=== PATIENT | female | born 1985 | race Caucasian/White ===

== ENCOUNTER 2018-04-14 05:06 | Inpatient (IN) | payer BC ==
[2018-04-14] MEDS ORDERED: Sodium Chloride 0.9% 10 ML Syringe FLUSH PRN (05:11)
[2018-04-14] MEDS ORDERED: ceFAZolin 2 GM in Premix Bag 1 BAG IV ONE (05:11)
[2018-04-14] MEDS ORDERED: Sodium Chloride 0.9% 2.5 ML Syringe FLUSH PRN (05:11)
[2018-04-14] MEDS ORDERED: Citric Acid/Sodium Citrate Solution 30 ML Cup PO ONE (05:11)
[2018-04-14] MEDS ORDERED: Oxytocin/0.9 % Sodium Chloride 30 UNIT/500 ML BAG IV SCH (05:15)
[2018-04-14] MEDS: Lactated Ringers 1,000 ML IV SCH ×2 (05:35→06:39)
--- NOTE | 2018-04-14 07:05 | PCM.PREANE ---
Preanesthetic Assessment - Anesthesia/Transfusion/Family Hx Anesthesia History: Prior Anesthesia Without Reaction Family History of Anesthesia Reaction: No Transfusion History: No Prior Transfusion(s) Intubation History: Unknown - Review of Systems General: No Symptoms Pulmonary: No Symptoms Cardiovascular: No Symptoms Gastrointestinal: No Symptoms Neurological: No Symptoms Other: Reports: None - Physical Assessment Height: 1.55 m Weight: 85.729 kg ASA Class: 2 Mental Status: Alert & Oriented x3 Airway Class: Mallampati = 2 Dentition: Reports: Normal Dentition Thyro-Mental Finger Breadths: 3 Mouth Opening Finger Breadths: 2 ROM/Head Extension: Full Lungs: Clear to Auscultation, Normal Respiratory Effort Cardiovascular: Regular Rate, Regular Rhythm - Lab Values: Laboratory Last Values WBC 9.62 K/uL (4.0-11.0) 04/14/18 05:35 RBC 4.68 M/uL (4.30-5.90) 04/14/18 05:35 Hgb 12.8 g/dL (12.0-16.0) 04/14/18 05:35 Hct 38.4 % (36.0-46.0) 04/14/18 05:35 MCV 82.1 fL (80.0-98.0) 04/14/18 05:35 MCH 27.4 pg (27.0-32.0) 04/14/18 05:35 MCHC 33.3 g/dL (31.0-37.0) 04/14/18 05:35 RDW Std Deviation 42.4 fl (28.0-62.0) 04/14/18 05:35 RDW Coeff of Miranda 14 % (11.0-15.0) 04/14/18 05:35 Plt Count 210 K/uL (150-400) 04/14/18 05:35 MPV 10.70 fL (7.40-12.00) 04/14/18 05:35 Nucleated RBC % 0.0 /100WBC 04/14/18 05:35 Nucleated RBCs # 0 K/uL 04/14/18 05:35 Blood Type B POSITIVE 04/14/18 05:35 Antibody Screen NEGATIVE 04/14/18 05:35 - Allergies Allergies/Adverse Reactions: Allergies Allergy/AdvReac Type Severity Reaction Status Date / Time No Known Allergies Allergy Verified 04/09/18 09:00 - Blood Blood Available: No - Anesthesia Plan Pre-Op Medication Ordered: None - Acknowledgements Anesthesia Type Planned: Spinal Pt an Appropriate Candidate for the Planned Anesthesia: Yes Alternatives and Risks of Anesthesia Discussed w Pt/Guardian: Yes Pt/Guardian Understands and Agrees with Anesthesia Plan: Yes PreAnesthesia Questionnaire HEENT History: Reports: Other (See Below) Other HEENT History: wears glasses Respiratory History: Reports: Asthma Gastrointestinal History: Reports: Other (See Below) Other Gastrointestinal History: occasional heartburn with Genitourinary History: Reports: None 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: Neurological History: Reports: Migraines Endocrine/Metabolic History: Reports: Diabetes, Gestational Other Endocrine/Metabolic History: gestational diabetes with 1st - Past Surgical History Head Surgeries/Procedures: Reports: None HEENT Surgical History: Reports: Oral Surgery Respiratory Surgical History: Reports: None GI Surgical History: Reports: None Female Surgical History: Reports: Section Endocrine Surgical History: Reports: None Neurological Surgical History: Reports: None - SUBSTANCE USE Smoking Status *Q: Never Smoker Second Hand Smoke Exposure: Yes Recreational Drug Use History: No - HOME MEDS Home Medications: Home Meds Albuterol [Ventolin HFA] 1 - 2 puff INH ASDIRECTED PRN 04/09/18 [History] Fish Oil/[place]-3 Fatty Acids [Fish Oil 1,000 MG] 1 tab PO DAILY 04/09/18 [ History] PNV95/Ferrous Fumarate/FA [ Vitamin Tablet] 1 tab PO DAILY 04/09/18 [ History] - CURRENT (IN HOUSE) MEDS Current Meds: Current Medications Lactated Ringer's (Ringers, Lactated) 1,000 mls @ 500 mls/hr IV BOLUS CARMELO Last Admin: 04/14/18 06:39 Dose: 500 mls/hr Oxytocin/Sodium Chloride (Oxytocin 30 Unit/500 Ml-Ns) 30 unit in 500 mls @ 250 mls/hr IV TITRATE CARMELO Sodium Chloride (Saline Flush) 10 ml FLUSH ASDIRECTED PRN PRN Reason: Keep Vein Open Sodium Chloride (Saline Flush) 2.5 ml FLUSH ASDIRECTED PRN PRN Reason: Keep Vein Open Discontinued Medications Citric Acid/Sodium Citrate (Bicitra Solution) 30 ml PO ONETIME ONE Stop: 04/14/18 05:12 Cefazolin Sodium/Dextrose 2 gm (/ Premix) 50 mls @ 100 mls/hr IV ONETIME ONE Stop: 04/14/18 05:40
[2018-04-14] MEDS ORDERED: Oxytocin 10 Units/1 ML SDV ONE ×2 (07:10)
[2018-04-14] MEDS ORDERED: ceFAZolin/Dextrose,Iso-Osmotic 2 GM/50 ML Duplex Bag IV ONE (07:10)
[2018-04-14] MEDS ORDERED: Morphine PF 1 MG/ML Amp ONE (07:13)
[2018-04-14] MEDS ORDERED: ePHEDrine 50 MG/ML SDV ONE (07:23)
[2018-04-14] MEDS ORDERED: Phenylephrine/Normal Saline 100 MCG/ML 10 ML Syringe ONE (08:48)
[2018-04-14] MEDS ORDERED: Esmolol 100 MG/10 ML SDV ONE (08:48)
[2018-04-14] MEDS ORDERED: Bisacodyl 10 MG Supp RECTAL PRN (09:28)
[2018-04-14] MEDS ORDERED: Lanolin 100% Cream 7 GM Tube TOP PRN (09:28)
[2018-04-14] MEDS ORDERED: Ondansetron 4 MG/2 ML SDV IV PRN (09:28)
[2018-04-14] MEDS ORDERED: Acetaminophen/oxyCODONE 325-5 MG Tab PO PRN (09:28)
[2018-04-14] MEDS ORDERED: diphenhydrAMINE 50 MG/ML SDV IVPUSH PRN (09:28)
[2018-04-14] MEDS ORDERED: Ibuprofen 800 MG Tab PO PRN (09:28)
[2018-04-14] MEDS ORDERED: Lactated Ringers 1,000 ML IV SCH (09:30)
--- NOTE | 2018-04-14 09:40 | PCM.OPNOTE ---
- General Post-Op/Procedure Note Date of Surgery/Procedure: 04/14/18 Operative Procedure(s): Repeat section Findings: Female , Weight 2800grams, Apgars 5 and 8. Normal appearing uterus, tubes and ovaries. Grossly normal placenta with 3 vessel cord Pre Op Diagnosis: IUP at 39 weeks, Polyhydramnios, Previous c- section, declined Post-Op Diagnosis: Same Anesthesia Technique: Spinal Primary Surgeon: Preeti Scott Linter Tender: Felicia Brown Fluid Replacement, Intraop: 1,200 Output, Urine Amount: 400 EBL in mLs: 800 Complications: None Condition: Good
[2018-04-14] MEDS: Ketorolac 30 MG/ML SDV IVPUSH SCH ×3 (09:43→21:17)
--- NOTE | 2018-04-14 10:01 | PCM.POSTAN ---
POST ANESTHESIA ASSESSMENT - MENTAL STATUS Mental Status: Alert, Oriented - RESPIRATORY Respiratory Status: Respiratory Rate WNL, Airway Patent, O2 Saturation Stable - CARDIOVASCULAR CV Status: Pulse Rate WNL, Blood Pressure Stable - GASTROINTESTINAL GI Status: No Symptoms - PAIN Pain Score: 0 - POST OP HYDRATION Hydration Status: Adequate & Stable
[2018-04-14] MEDS ORDERED: Nalbuphine 10 MG/1 ML Vial IVPUSH PRN (10:28)
[2018-04-14] MEDS ORDERED: Naloxone 0.4 MG/ML Syringe IVPUSH PRN (10:28)
[2018-04-14] MEDS: Docusate Sodium 100 MG Cap PO SCH (21:17)
[2018-04-15] MEDS: Ketorolac 30 MG/ML SDV IVPUSH SCH ×2 (03:39→10:22)
--- NOTE | 2018-04-15 07:13 | OR ---
SURGEON: Preeti Scott MD DATE OF PROCEDURE: 04/14/2018 PREOPERATIVE DIAGNOSES: 1. Intrauterine at 39 weeks gestation. 2. Polyhydramnios. 3. Elective repeat section, declined trial of labor after , TOLAC. POSTOPERATIVE DIAGNOSES: 1. Intrauterine at 39 weeks gestation. 2. Polyhydramnios. 3. Elective repeat section, declined trial of labor after , TOLAC. 4. Delivered. PROCEDURE: Repeat low transverse section via Pfannenstiel. ANESTHESIA: Spinal. IV FLUIDS: 1200 mL of crystalloids. ESTIMATED BLOOD LOSS: 800 mL. URINE OUT: 400 mL, clear. COMPLICATIONS: None. DISPOSITION: Stable to recovery room. FINDINGS: Female infant, weight 2800 g, scores 5 and 9 at 1 and 5 minutes respectively. Copious amount of clear amniotic fluid. Grossly normal placenta with 3-vessel cord. Normal uterus, tubes, and ovaries bilaterally. INDICATION: The patient is a 32-year-old, G3, P1-0-1-1, with a history prior section, she declined trial of labor after section, opting to have a repeat section. Her was complicated by polyhydramnios with reassuring surveillance. GBS negative DESCRIPTION OF PROCEDURE: The patient was taken to the operating room, where spinal anesthesia was performed and found to be adequate. She was prepped and draped in a sterile fashion in dorsal supine position with a leftward tilt. A 2 g of Ancef was given. Appropriate time-out was held. SCDs were in place with the Villeda draining down to gravity. A Pfannenstiel skin incision was then made with a scalpel along the old incision and carried through to the underlying fascia with the Bovie. The fascia was incised in the midline and extended laterally with the Chaparro scissors. The superior aspect of the fascial incision was grasped with Asha clamps, elevated, and the underlying rectus muscles were dissected off with the scalpel. Inferior aspect of the fascial incision was then in similar fashion grasped with Asha clamps, elevated, and the underlying rectus muscles were dissected off sharply with the scalpel. The rectus muscles were then in the midline carefully until the parietal peritoneum was reached and entered bluntly. The peritoneal defect was then extended superiorly and inferiorly with good visualization of the bladder and other internal organs. An Jarred self-retaining retractor was then placed into the abdominal cavity. The vesicouterine peritoneum was identified, picked up and sharply with Metzenbaum scissors and extended laterally and a bladder flap was created digitally. The lower uterine segment was then incised in a transverse position and the uterine incision was extended upwards and downwards bluntly. Copious amount of clear amniotic fluid was noted and the 's head was noted to be floating. The 's head was then gently grasped and but I was unable to deliver the head with fundal pressure applied by my certified surgical first assistant. Due to the fact that the head was floating, I decided to use a Kiwi vacuum to aid delivery of the infant's head. This was applied and then traction was applied. It was then noted that the infant was protruding the left hand through the uterine incision. I dislodged the Kiwi and then gently pushed back the infant's hand into the uterine cavity by making sure that it was bent by the elbow, and then the hand was gently swept back into the uterine cavity. The Kiwi was then reapplied and with good traction and fundal pressure from my certified surgical first assistant, the head was then delivered successfully. The shoulders and the rest of the baby was then delivered atraumatically. The cord was then double clamped and cut and the oropharynx and nostrils were bulb suctioned on the abdomen. The baby was then handed over to the waiting nursery team. I was only able to collect the venous sample and cord blood sample were obtained. The placenta was delivered spontaneously with uterine massage. The uterine cavity was cleaned of all clots and debris. The hysterotomy site was then repaired in 2 layers using 0 Vicryl. The first layer was repaired in a running locked fashion and second imbricating layer was performed to obtain excellent hemostasis. Good hemostasis was noted. The ovaries and tubes were examined and found to be grossly normal bilaterally. The gutters were cleaned of all clots and debris. The hysterotomy site was re- examined and found to have excellent hemostasis. The Jarred O retractor was then removed from the abdominal cavity. Parietal peritoneum was then identified and closed using 2-0 Vicryl in a running fashion. The rectus muscle was reapproximated using 2-0 Vicryl. The subfascial tissue was found to have excellent hemostasis. The fascia was then closed with 0 Vicryl using running stitches. The subcuticular layer was made hemostatic with the Bovie. The skin was closed with 4-0 Monocryl suture placing subcuticular stitches. The patient tolerated the procedure well. Sponge, instrument, and needle counts were correct at the end of the procedure. WANDA / CESARIO /[id number] MTDD
--- NOTE | 2018-04-15 08:20 | PCM.PNPP ---
<Felicia Brown - Last Filed: 04/15/18 08:54> - General Info Date of Service: 04/15/18 Admission Dx/Problem (Free Text): Repeat LTCS Subjective Update: 32 year old POD1 from repeat LTCS at 39 weeks. Patient offers no complaints. Functional Status: Reports: Pain Controlled, Tolerating Diet, Ambulating, Urinating - Review of Systems General: Denies: Fever, Chills HEENT: Denies: Headaches, Visual Changes Pulmonary: Denies: Shortness of Breath, Pleuritic Chest Pain, Cough Cardiovascular: Denies: Chest Pain, Edema Gastrointestinal: Denies: Abdominal Pain, Constipation, Diarrhea, Nausea, Vomiting Genitourinary: Denies: Dysuria, Frequency, Burning Musculoskeletal: Denies: Leg Pain Neurological: Denies: Dizziness, Headache - General Info Date of Service: 04/15/18 - Patient Data Vital Signs - Most Recent: Last Vital Signs Temp 36.6 C 04/15/18 03:50 Pulse 100 04/15/18 07:00 Resp 16 04/15/18 07:00 BP 129/64 04/15/18 03:50 Pulse Ox 96 04/15/18 07:00 Weight - Most Recent: 189 lb I&O - Last 24 Hours: Intake & Output 04/14/18 04/15/18 04/15/18 22:59 06:59 14:59 Output Total 1100 700 Balance -1100 -700 Lab Results - Last 24 Hours: Laboratory Results - last 24 hr 04/14/18 04/15/18 Range/Units 08:39 04:55 Hgb 8.7 L (12.0-16.0) g/dL Hct 26.3 L (36.0-46.0) % Cord VBG pH 7.098 L (7.25-7.45) Cord VBG Base Excess -15 L (-10--2) Med Orders - Current: Current Medications Bisacodyl (Dulcolax) 10 mg RECTAL ONETIME PRN PRN Reason: Constipation Diphenhydramine HCl (Benadryl) 25 mg IVPUSH Q6H PRN PRN Reason: Itching or Nausea Docusate Sodium (Colace) 100 mg PO BID CARMELO Last Admin: 04/14/18 21:17 Dose: 100 mg Emollient Ointment (Lansinoh Hpa) 0 gm TOP ASDIRECTED PRN PRN Reason: Sore Nipples Lactated Ringer's (Ringers, Lactated) 1,000 mls @ 125 mls/hr IV ASDIRECTED CARMELO Ibuprofen (Motrin) 800 mg PO Q8H PRN PRN Reason: mild pain or fever Ketorolac Tromethamine (Toradol) 30 mg IVPUSH Q6H CARMELO Stop: 04/15/18 09:31 Last Admin: 04/15/18 03:39 Dose: 30 mg Nalbuphine HCl (Nubain) 5 mg IVPUSH Q3H PRN PRN Reason: Pruritis Stop: 04/15/18 10:29 Naloxone HCl (Narcan) 0.1 mg IVPUSH ONETIME PRN PRN Reason: Respiratory Depression Stop: 04/15/18 10:28 Ondansetron HCl (Zofran) 4 mg IV Q4H PRN PRN Reason: Nausea/Vomiting Oxycodone/Acetaminophen (Percocet 325-5 Mg) 1 tab PO Q4H PRN PRN Reason: Pain (moderate 4-6) Oxycodone/Acetaminophen (Percocet 325-5 Mg) 2 tab PO Q4H PRN PRN Reason: Pain (moderate 4-6) Discontinued Medications Cefazolin Sodium/Dextrose (Ancef) Confirm Administered Dose 2 gm IV .STK-MED ONE Stop: 04/14/18 07:11 Citric Acid/Sodium Citrate (Bicitra Solution) 30 ml PO ONETIME ONE Stop: 04/14/18 05:12 Ephedrine Sulfate (Ephedrine Sulfate) Confirm Administered Dose 50 mg .ROUTE .STK-MED ONE Stop: 04/14/18 07:24 Esmolol HCl (Esmolol) Confirm Administered Dose 100 mg .ROUTE .STK-MED ONE Stop: 04/14/18 08:49 Cefazolin Sodium/Dextrose 2 gm (/ Premix) 50 mls @ 100 mls/hr IV ONETIME ONE Stop: 04/14/18 05:40 Lactated Ringer's (Ringers, Lactated) 1,000 mls @ 500 mls/hr IV BOLUS [facility] Last Admin: 04/14/18 06:39 Dose: 500 mls/hr Oxytocin/Sodium Chloride (Oxytocin 30 Unit/500 Ml-Ns) 30 unit in 500 mls @ 250 mls/hr IV TITRATE CARMELO Morphine Sulfate (Duramorph Pf) Confirm Administered Dose 1 mg .ROUTE .STK-MED ONE Stop: 04/14/18 07:14 Oxytocin (Pitocin) Confirm Administered Dose 10 unit .ROUTE .STK-MED ONE Stop: 04/14/18 07:11 Oxytocin (Pitocin) Confirm Administered Dose 10 unit .ROUTE .STK-MED ONE Stop: 04/14/18 07:11 Phenylephrine HCl (Phenylephrine In Ns 100 Mcg/Ml) Confirm Administered Dose 1 mg .ROUTE .STK-MED ONE Stop: 04/14/18 08:49 Sodium Chloride (Saline Flush) 10 ml FLUSH ASDIRECTED PRN PRN Reason: Keep Vein Open Sodium Chloride (Saline Flush) 2.5 ml FLUSH ASDIRECTED PRN PRN Reason: Keep Vein Open - Interaction Disposition, : [place] to Nursery Infant Interaction: Not Applicable Infant Feeding: Bottle Fed Support Person: - Recovery Exam Fundal Tone: Firm Fundal Level: 1 Fingerbreadths Below Umbilicus Fundal Placement: Midline Lochia Amount: Scant Lochia Color: Rubra/Red Perineum Description: Intact, Minimal Bruising/Swelling Episiotomy/Laceration: None Bladder Status: Nonpalpable Urinary Elimination: Voided - Exam General: Alert, Oriented, No Acute Distress HEENT: Pupils Equal, Pupils Reactive Lungs: Clear to Auscultation, Normal Respiratory Effort. No: Crackles Cardiovascular: Regular Rate, Regular Rhythm, No Murmurs GI/Abdominal Exam: Normal Bowel Sounds, Soft, Non-Tender, No Distention. No: Guarding, Rigid, Rebound Extremities: Normal Inspection, Normal Range of Motion, Non-Tender, No Pedal Edema, Normal Capillary Refill Skin: Warm, Dry, Intact Wound/Incisions: Healing Well, Dressing Dry and Intact Neurological: No New Focal Deficit - Problem List Review Problem List Initiated/Reviewed/Updated: Yes - Assessment Assessment:: 32 year old POD1 from repeat LTCS. Pain controlled. Ambulating and voiding. - Plan Plan:: Continue routine postop cares. Pain meds: percocet and ibuprofen Continue to monitor I/O Up ad lili Anticipate discharge tomorrow. <Preeti Scott - Last Filed: 04/15/18 08:59> - Patient Data Vital Signs - Most Recent: Last Vital Signs Temp 36.5 C 04/15/18 08:00 Pulse 89 04/15/18 08:00 Resp 18 04/15/18 08:00 BP 122/64 04/15/18 08:00 Pulse Ox 99 04/15/18 08:00 I&O - Last 24 Hours: Intake & Output 04/14/18 04/15/18 04/15/18 22:59 06:59 14:59 Output Total 1100 700 Balance -1100 -700 Lab Results - Last 24 Hours: Laboratory Results - last 24 hr 04/14/18 04/15/18 Range/Units 08:39 04:55 Hgb 8.7 L (12.0-16.0) g/dL Hct 26.3 L (36.0-46.0) % Cord VBG pH 7.098 L (7.25-7.45) Cord VBG Base Excess -15 L (-10--2) Med Orders - Current: Current Medications Bisacodyl (Dulcolax) 10 mg RECTAL ONETIME PRN PRN Reason: Constipation Diphenhydramine HCl (Benadryl) 25 mg IVPUSH Q6H PRN PRN Reason: Itching or Nausea Docusate Sodium (Colace) 100 mg PO BID [facility] Last Admin: 04/14/18 21:17 Dose: 100 mg Emollient Ointment (Lansinoh Hpa) 0 gm TOP ASDIRECTED PRN PRN Reason: Sore Nipples Lactated Ringer's (Ringers, Lactated) 1,000 mls @ 125 mls/hr IV ASDIRECTED [facility] Ibuprofen (Motrin) 800 mg PO Q8H PRN PRN Reason: mild pain or fever Ketorolac Tromethamine (Toradol) 30 mg IVPUSH Q6H [facility] Stop: 04/15/18 09:31 Last Admin: 04/15/18 03:39 Dose: 30 mg Nalbuphine HCl (Nubain) 5 mg IVPUSH Q3H PRN PRN Reason: Pruritis Stop: 04/15/18 10:29 Naloxone HCl (Narcan) 0.1 mg IVPUSH ONETIME PRN PRN Reason: Respiratory Depression Stop: 04/15/18 10:28 Ondansetron HCl (Zofran) 4 mg IV Q4H PRN PRN Reason: Nausea/Vomiting Oxycodone/Acetaminophen (Percocet 325-5 Mg) 1 tab PO Q4H PRN PRN Reason: Pain (moderate 4-6) Oxycodone/Acetaminophen (Percocet 325-5 Mg) 2 tab PO Q4H PRN PRN Reason: Pain (moderate 4-6) Discontinued Medications Cefazolin Sodium/Dextrose (Ancef) Confirm Administered Dose 2 gm IV .STK-MED ONE Stop: 04/14/18 07:11 Citric Acid/Sodium Citrate (Bicitra Solution) 30 ml PO ONETIME ONE Stop: 04/14/18 05:12 Ephedrine Sulfate (Ephedrine Sulfate) Confirm Administered Dose 50 mg .ROUTE .STK-MED ONE Stop: 04/14/18 07:24 Esmolol HCl (Esmolol) Confirm Administered Dose 100 mg .ROUTE .STK-MED ONE Stop: 04/14/18 08:49 Cefazolin Sodium/Dextrose 2 gm (/ Premix) 50 mls @ 100 mls/hr IV ONETIME ONE Stop: 04/14/18 05:40 Lactated Ringer's (Ringers, Lactated) 1,000 mls @ 500 mls/hr IV BOLUS CARMELO Last Admin: 04/14/18 06:39 Dose: 500 mls/hr Oxytocin/Sodium Chloride (Oxytocin 30 Unit/500 Ml-Ns) 30 unit in 500 mls @ 250 mls/hr IV TITRATE CARMELO Morphine Sulfate (Duramorph Pf) Confirm Administered Dose 1 mg .ROUTE .STK-MED ONE Stop: 04/14/18 07:14 Oxytocin (Pitocin) Confirm Administered Dose 10 unit .ROUTE .STK-MED ONE Stop: 04/14/18 07:11 Oxytocin (Pitocin) Confirm Administered Dose 10 unit .ROUTE .STK-MED ONE Stop: 04/14/18 07:11 Phenylephrine HCl (Phenylephrine In Ns 100 Mcg/Ml) Confirm Administered Dose 1 mg .ROUTE .STK-MED ONE Stop: 04/14/18 08:49 Sodium Chloride (Saline Flush) 10 ml FLUSH ASDIRECTED PRN PRN Reason: Keep Vein Open Sodium Chloride (Saline Flush) 2.5 ml FLUSH ASDIRECTED PRN PRN Reason: Keep Vein Open - Exam Wound/Incisions: Dressing Dry and Intact Psy/Mental Status: Alert - My Orders Last 24 Hours: My Active Orders 08/21/18 09:28 Acetaminophen/oxyCODONE [Percocet 325-5 MG] 1 tab PO Q4H PRN Acetaminophen/oxyCODONE [Percocet 325-5 MG] 2 tab PO Q4H PRN Bisacodyl [Dulcolax] 10 mg RECTAL ONETIME PRN Ibuprofen [Motrin] 800 mg PO Q8H PRN Lanolin [Lansinoh HPA] See Dose Instructions TOP ASDIRECTED PRN Ondansetron [Zofran] 4 mg IV Q4H PRN diphenhydrAMINE [Benadryl] 25 mg IVPUSH Q6H PRN Abdominal Binder [OM.PC] Routine Resuscitation Status Routine 04/14/18 09:29 Patient Status [ADT] Routine Ambulate [RC] PER UNIT ROUTINE Communication Order [RC] PER UNIT ROUTINE Communication Order [RC] PER UNIT ROUTINE Communication Order [RC] Per Unit Routine May Shower [RC] ASDIRECTED RT Incentive Spirometry [RC] Q2HWA Vital Signs [RC] PER UNIT ROUTINE Assess Lochia [WOMSER] Per Unit Routine Assess Uterine Involution [WOMSER] Per Unit Routine Breast Pump [WOMSER] Per Unit Routine Peripheral IV Discontinue [OM.PC] Routine Sequential Compression Device [OM.PC] Per Unit Routine 04/14/18 09:30 Ketorolac [Toradol] 30 mg IVPUSH Q6H Lactated Ringers [Ringers, Lactated] 1,000 ml IV ASDIRECTED 04/14/18 09:31 Intake and Output [RC] Q4H Notify Provider Intake and Out [RC] ASDIRECTED Notify Provider Vital Signs [RC] ASDIRECTED 04/14/18 21:00 Docusate Sodium [Colace] 100 mg PO BID 04/14/18 Lunch Regular Diet [DIET] - Assessment Assessment:: Patient was evaluated independently. Patient is doing well Agree with above - Plan Plan:: Agree with above
[2018-04-15] MEDS: Docusate Sodium 100 MG Cap PO SCH ×2 (10:22→20:45)
--- NOTE | 2018-04-15 11:59 | PCM48HPAN ---
Post Anesthesia Note - EVALUATION WITHIN 48HRS OF ANESTHETIC Vital Signs in Normal Range: Yes Patient Participated in Evaluation: Yes Respiratory Function Stable: Yes Airway Patent: Yes Cardiovascular Function Stable: Yes Hydration Status Stable: Yes Pain Control Satisfactory: Yes Nausea and Vomiting Control Satisfactory: Yes Mental Status Recovered: Yes Resp Rate: 18
[2018-04-15] MEDS: Acetaminophen/oxyCODONE 325-5 MG Tab PO PRN ×2 (14:56→20:44)
[2018-04-16] MEDS: Acetaminophen/oxyCODONE 325-5 MG Tab PO PRN (01:44)
--- NOTE | 2018-04-16 08:06 | PCM.PNPP ---
<Lizzy Sin - Last Filed: 04/16/18 08:03> - General Info Date of Service: 04/16/18 Functional Status: Reports: Pain Controlled, Tolerating Diet, Ambulating, Urinating - Review of Systems General: Denies: Fever, Weakness, Fatigue Pulmonary: Denies: Shortness of Breath, Pleuritic Chest Pain, Cough Cardiovascular: Denies: Chest Pain, Palpitations, Dyspnea on Exertion Gastrointestinal: Denies: Abdominal Pain Genitourinary: Denies: Dysuria - General Info Date of Service: 04/09/18 - Patient Data Vital Signs - Most Recent: Last Vital Signs Temp 36.6 C 04/16/18 07:31 Pulse 95 04/16/18 07:31 Resp 18 04/16/18 07:31 BP 125/78 04/16/18 07:31 Pulse Ox 98 04/16/18 07:31 Weight - Most Recent: 189 lb Med Orders - Current: Current Medications Bisacodyl (Dulcolax) 10 mg RECTAL ONETIME PRN PRN Reason: Constipation Diphenhydramine HCl (Benadryl) 25 mg IVPUSH Q6H PRN PRN Reason: Itching or Nausea Docusate Sodium (Colace) 100 mg PO BID [facility] Last Admin: 04/15/18 20:45 Dose: 100 mg Emollient Ointment (Lansinoh Hpa) 0 gm TOP ASDIRECTED PRN PRN Reason: Sore Nipples Lactated Ringer's (Ringers, Lactated) 1,000 mls @ 125 mls/hr IV ASDIRECTED [facility] Ibuprofen (Motrin) 800 mg PO Q8H PRN PRN Reason: mild pain or fever Ondansetron HCl (Zofran) 4 mg IV Q4H PRN PRN Reason: Nausea/Vomiting Oxycodone/Acetaminophen (Percocet 325-5 Mg) 1 tab PO Q4H PRN PRN Reason: Pain (moderate 4-6) Last Admin: 04/16/18 01:44 Dose: 1 tab Oxycodone/Acetaminophen (Percocet 325-5 Mg) 2 tab PO Q4H PRN PRN Reason: Pain (moderate 4-6) Discontinued Medications Cefazolin Sodium/Dextrose (Ancef) Confirm Administered Dose 2 gm IV .STK-MED ONE Stop: 04/14/18 07:11 Citric Acid/Sodium Citrate (Bicitra Solution) 30 ml PO ONETIME ONE Stop: 04/14/18 05:12 Ephedrine Sulfate (Ephedrine Sulfate) Confirm Administered Dose 50 mg .ROUTE .STK-MED ONE Stop: 04/14/18 07:24 Esmolol HCl (Esmolol) Confirm Administered Dose 100 mg .ROUTE .STK-MED ONE Stop: 04/14/18 08:49 Cefazolin Sodium/Dextrose 2 gm (/ Premix) 50 mls @ 100 mls/hr IV ONETIME ONE Stop: 04/14/18 05:40 Lactated Ringer's (Ringers, Lactated) 1,000 mls @ 500 mls/hr IV BOLUS [facility] Last Admin: 04/14/18 06:39 Dose: 500 mls/hr Oxytocin/Sodium Chloride (Oxytocin 30 Unit/500 Ml-Ns) 30 unit in 500 mls @ 250 mls/hr IV TITRATE [facility] Ketorolac Tromethamine (Toradol) 30 mg IVPUSH Q6H [facility] Stop: 04/15/18 09:31 Last Admin: 04/15/18 10:22 Dose: 30 mg Morphine Sulfate (Duramorph Pf) Confirm Administered Dose 1 mg .ROUTE .STK-MED ONE Stop: 04/14/18 07:14 Nalbuphine HCl (Nubain) 5 mg IVPUSH Q3H PRN PRN Reason: Pruritis Stop: 04/15/18 10:29 Naloxone HCl (Narcan) 0.1 mg IVPUSH ONETIME PRN PRN Reason: Respiratory Depression Stop: 04/15/18 10:28 Oxytocin (Pitocin) Confirm Administered Dose 10 unit .ROUTE .STK-MED ONE Stop: 04/14/18 07:11 Oxytocin (Pitocin) Confirm Administered Dose 10 unit .ROUTE .STK-MED ONE Stop: 04/14/18 07:11 Phenylephrine HCl (Phenylephrine In Ns 100 Mcg/Ml) Confirm Administered Dose 1 mg .ROUTE .STK-MED ONE Stop: 04/14/18 08:49 Sodium Chloride (Saline Flush) 10 ml FLUSH ASDIRECTED PRN PRN Reason: Keep Vein Open Sodium Chloride (Saline Flush) 2.5 ml FLUSH ASDIRECTED PRN PRN Reason: Keep Vein Open - Interaction Disposition, : [place] to Nursery Interaction: Not Applicable Feeding: Bottle Fed Infant Support Person: - Recovery Exam Fundal Tone: Firm Fundal Level: 1 Fingerbreadths Below Umbilicus Fundal Placement: Midline Lochia Amount: Scant Lochia Color: Rubra/Red Perineum Description: Intact, Minimal Bruising/Swelling Episiotomy/Laceration: None Bladder Status: Nonpalpable Urinary Elimination: Voided - Exam General: Alert Neck: Supple Lungs: Clear to Auscultation, Normal Respiratory Effort Cardiovascular: Regular Rate, Regular Rhythm GI/Abdominal Exam: Normal Bowel Sounds, Soft, Non-Tender, No Mass Extremities: Normal Inspection, Non-Tender, Normal Capillary Refill, Pedal Edema (trace) Skin: Warm, Dry - Problem List Review Problem List Initiated/Reviewed/Updated: Yes - Assessment Assessment:: POD #2 s/p RLTCS with minimal pain and bleeding. Bottle feeding. Discharge home today. - Plan Plan:: Discharge instructions reviewed. Pelvic rest for 6 weeks. Rx for Percocet to use as needed for pain. No lifting greater than 10lbs for 6 weeks. Instructed patient to call if she develops fever greater than 101 or bleeding through a large pad an hour. F/U with [facility] in 2 and 6 weeks. <Preeti Scott - Last Filed: 04/16/18 12:20> - Patient Data Vital Signs - Most Recent: Last Vital Signs Temp 36.6 C 04/16/18 07:31 Pulse 95 04/16/18 07:31 Resp 18 04/16/18 07:31 BP 125/78 04/16/18 07:31 Pulse Ox 98 04/16/18 07:31 Med Orders - Current: Current Medications Bisacodyl (Dulcolax) 10 mg RECTAL ONETIME PRN PRN Reason: Constipation Diphenhydramine HCl (Benadryl) 25 mg IVPUSH Q6H PRN PRN Reason: Itching or Nausea Docusate Sodium (Colace) 100 mg PO BID [facility] Last Admin: 04/16/18 09:41 Dose: 100 mg Emollient Ointment (Lansinoh Hpa) 0 gm TOP ASDIRECTED PRN PRN Reason: Sore Nipples Lactated Ringer's (Ringers, Lactated) 1,000 mls @ 125 mls/hr IV ASDIRECTED [facility] Ibuprofen (Motrin) 800 mg PO Q8H PRN PRN Reason: mild pain or fever Last Admin: 04/16/18 09:43 Dose: 800 mg Ondansetron HCl (Zofran) 4 mg IV Q4H PRN PRN Reason: Nausea/Vomiting Oxycodone/Acetaminophen (Percocet 325-5 Mg) 1 tab PO Q4H PRN PRN Reason: Pain (moderate 4-6) Last Admin: 04/16/18 01:44 Dose: 1 tab Oxycodone/Acetaminophen (Percocet 325-5 Mg) 2 tab PO Q4H PRN PRN Reason: Pain (moderate 4-6) Discontinued Medications Cefazolin Sodium/Dextrose (Ancef) Confirm Administered Dose 2 gm IV .STK-MED ONE Stop: 04/14/18 07:11 Citric Acid/Sodium Citrate (Bicitra Solution) 30 ml PO ONETIME ONE Stop: 04/14/18 05:12 Ephedrine Sulfate (Ephedrine Sulfate) Confirm Administered Dose 50 mg .ROUTE .STK-MED ONE Stop: 04/14/18 07:24 Esmolol HCl (Esmolol) Confirm Administered Dose 100 mg .ROUTE .STK-MED ONE Stop: 04/14/18 08:49 Cefazolin Sodium/Dextrose 2 gm (/ Premix) 50 mls @ 100 mls/hr IV ONETIME ONE Stop: 04/14/18 05:40 Lactated Ringer's (Ringers, Lactated) 1,000 mls @ 500 mls/hr IV BOLUS [facility] Last Admin: 04/14/18 06:39 Dose: 500 mls/hr Oxytocin/Sodium Chloride (Oxytocin 30 Unit/500 Ml-Ns) 30 unit in 500 mls @ 250 mls/hr IV TITRATE [facility] Ketorolac Tromethamine (Toradol) 30 mg IVPUSH Q6H [facility] Stop: 04/15/18 09:31 Last Admin: 04/15/18 10:22 Dose: 30 mg Morphine Sulfate (Duramorph Pf) Confirm Administered Dose 1 mg .ROUTE .STK-MED ONE Stop: 04/14/18 07:14 Nalbuphine HCl (Nubain) 5 mg IVPUSH Q3H PRN PRN Reason: Pruritis Stop: 04/15/18 10:29 Naloxone HCl (Narcan) 0.1 mg IVPUSH ONETIME PRN PRN Reason: Respiratory Depression Stop: 04/15/18 10:28 Oxytocin (Pitocin) Confirm Administered Dose 10 unit .ROUTE .STK-MED ONE Stop: 04/14/18 07:11 Oxytocin (Pitocin) Confirm Administered Dose 10 unit .ROUTE .STK-MED ONE Stop: 04/14/18 07:11 Phenylephrine HCl (Phenylephrine In Ns 100 Mcg/Ml) Confirm Administered Dose 1 mg .ROUTE .STK-MED ONE Stop: 04/14/18 08:49 Sodium Chloride (Saline Flush) 10 ml FLUSH ASDIRECTED PRN PRN Reason: Keep Vein Open Sodium Chloride (Saline Flush) 2.5 ml FLUSH ASDIRECTED PRN PRN Reason: Keep Vein Open - Assessment Assessment:: Agree with above - Plan Plan:: Agree with patient. Also blues vs depression S/S with patient. She should call if she has any concerns
[2018-04-16] MEDS: Docusate Sodium 100 MG Cap PO SCH (09:41)
== END 2018-04-16 13:00 | disposition home or self-care (01) | DRG 540 ==
LOC: MW.OB 05:06
PROVIDERS: ADMIT Obstetrics & Gynecology; ATTEND Obstetrics & Gynecology
PROC: 10D00Z1 Extraction of Products of Conception, Low, Open Approach (ICD-10-PCS; principal; 2018-04-14)
PROC: 00HU33Z Insertion of Infusion Device into Spinal Canal, Percutaneous Approach (ICD-10-PCS; 2018-04-14)
DX: O40.3XX0 Polyhydramnios, third trimester, not applicable or unspecified (principal); Z3A.39 39 weeks gestation of pregnancy; Z37.0 Single live birth
CPT/HCPCS: 36415; 59025; 82803; 85014; 85018; 85027; 86850; 86900; 86901; A9270-GY; J0690; J1885; J2274; J2370; J2590; J3490; J7120

== ENCOUNTER 2022-09-09 06:41 | Day surgery (SDC) | payer BC ==
[2022-09-09] MEDS ORDERED: Lactated Ringers 1,000 ML IV SCH (06:45)
[2022-09-09] MEDS ORDERED: Dexamethasone 4 MG/ML 5 ML MDV ONE (07:34)
[2022-09-09] MEDS ORDERED: fentaNYL 250 MCG/5 ML SDV ONE (07:34)
[2022-09-09] MEDS ORDERED: Ondansetron 4 MG/2 ML SDV ONE ×2 (07:34→08:49)
[2022-09-09] MEDS ORDERED: Glycopyrrolate 0.2 MG/ML SDV ONE (07:34)
[2022-09-09] MEDS ORDERED: Dexmedetomidine 200 MCG/2 ML SDV ONE (07:34)
[2022-09-09] MEDS ORDERED: Propofol 200 MG/20 ML SDV ONE (07:34)
[2022-09-09] MEDS ORDERED: Water For Injection, Sterile 20 ML ONE (07:39)
[2022-09-09] MEDS ORDERED: Albuterol 0.083% 2.5 MG/3 ML Neb Soln NEB PRN (07:47)
[2022-09-09] MEDS ORDERED: Morphine 2 MG/ML SYRINGE IVPUSH PRN (07:47)
[2022-09-09] MEDS ORDERED: Ondansetron 4 MG/2 ML SDV IVPUSH PRN (07:47)
[2022-09-09] MEDS ORDERED: HYDROmorphone 1 MG/ML Syringe IVPUSH PRN (07:47)
[2022-09-09] MEDS ORDERED: fentaNYL 50 MCG/ML SDV IVPUSH PRN (07:47)
[2022-09-09] MEDS ORDERED: Naloxone 0.4 MG/ML SDV IVPUSH PRN (07:47)
[2022-09-09] MEDS ORDERED: Metoclopramide 10 MG/2 ML SDV IVPUSH PRN (07:47)
[2022-09-09] MEDS ORDERED: Ketorolac 30 MG/ML SDV ONE (09:12)
== END 2022-09-09 10:38 | disposition home or self-care (01) ==
LOC: MW.SDS 06:41
PROVIDERS: ATTEND Obstetrics & Gynecology
DX: N80.03 Adenomyosis of the uterus (principal); J45.909 Unspecified asthma, uncomplicated; N83.209 Unspecified ovarian cyst, unspecified side; E66.9 Obesity, unspecified; Z79.899 Other long term (current) drug therapy; Z98.890 Other specified postprocedural states; Z91.041 Radiographic dye allergy status
CPT/HCPCS: 36415; 58563; 84703; 85027; J0131; J1100; J1885; J2405; J2704; J3010; J3490; J7120; 00952